=== PATIENT | female | born 1990 | race Caucasian/White ===

== ENCOUNTER 2016-10-03 19:52 | Emergency (ER) | payer BC, OTHER ==
[~2016-10-03] VITALS: Ht 165.1 cm; Wt 113.9 kg
[~2016-10-03 19:52] MED LIST: ADVAIR 250/501 DISK; ADVAIR 250/501 DISK IH; ALPRAZOLAM0.25 M2 PO; AMOXICILLIN250 MG PO; BACTRIM,SEPT1 TABLET PO; CIPRO500 MG PO; CIPROFLOXACIN H10 ML RIGHT EYE; ENDOCET 5-3251 EACH PO; FLEXERIL10 MG PO; IBUPROFEN800 MG PO; LORTAB 5-325 M1 EACH PO; MOTRIN800 MG PO; MUPIROCIN22 GM TP; PERCOCET 5/31 TABLET PO; PRENATAL TABLE1 EAC3 PO; XULANE PATCH1 EACH TD; ZOFRAN ODT4 MG PO
[2016-10-03 21:17] LABS: ADD MIUA? YES; BILIRUBIN NEGATIVE; BLOOD NEGATIVE; COLOR YELLOW ((YELLOW)); GLUCOSE (STRIP) NEGATIVE; KETONES NEGATIVE; LEUKOCYTES NEGATIVE; NITRITE NEGATIVE; PROTEIN (STRIP) NEGATIVE; UROBILINOGEN 0.2 MG/DL (0.2-1.0)
[2016-10-03 21:33] LABS: BACTERIA NONE SEEN /HPF; EPITHELIAL CELLS 2+ /HPF; MUCUS TRACE /LPF; RED BLOOD CELLS 0-5 /HPF (0-5); UCUL ADDED? NO
[2016-10-03] MEDS ORDERED: NAPROSYN500 MG PO (22:02)
[2016-10-03] MEDS ORDERED: MACROBID100 MG PO (22:09)
[2016-10-03 22:19] VITALS: BP 137/77
== END 2016-10-03 22:19 | disposition home or self-care (01) ==
LOC: EME 19:52
PROVIDERS: Physician Assistant Medical
DX: S93.602A Unspecified sprain of left foot, initial encounter (principal); N39.0 Urinary tract infection, site not specified; Z91.81 History of falling; B19.20 Unspecified viral hepatitis C without hepatic coma; M79.7 Fibromyalgia; F17.200 Nicotine dependence, unspecified, uncomplicated
CPT/HCPCS: 73610; 73630; 81003; 93971; 99281; 99284

== ENCOUNTER 2018-02-21 10:14 | Emergency (ER) | payer BC, OTHER ==
[~2018-02-21] VITALS: Ht 165.1 cm; Wt 118.7 kg
[~2018-02-21 10:14] MED LIST changes: +MACROBID100 MG PO; +NAPROSYN500 MG PO
[2018-02-21 11:01] LABS: HEMATOCRIT 42.1 % (36.0-46.0); HEMOGLOBIN 14.9 G/DL (11.9-15.5); MCH 31.9 PG (29.0-34.0); MCHC 35.4 G/DL (30.0-36.0); MCV 90.1 FL (83-99); PLATELET COUNT 258 K/uL (156-360); RBC DIS.WIDTH-CV 11.9 % (11.8-14.6); RBC DIS.WIDTH-SD 39.2 % (39-53); RED BLOOD COUNT 4.67 M/uL (3.80-5.20); WHITE BLOOD COUNT 11.7 K/uL (4.1-10.2)
[2018-02-21 11:47] LABS: CHLORIDE 104 MEQ/L (99-109); CREATININE 0.7 MG/DL (0.6-1.3); GFR ESTIMATE (CALCULATED) > 59 mL/min/; GLUCOSE 125 mg/dL (70-99); POTASSIUM 3.9 MEQ/L (3.7-5.4); SODIUM 141 MEQ/L (136-147); UREA NITROGEN (BUN) 9 mg/dL (9-23)
[2018-02-21] MEDS ORDERED: DUONEB 2.5-0.5 M3 ML AEROSOL (14:15)
[2018-02-21 14:23] VITALS: BP 126/93
[2018-02-22] MEDS ORDERED: PREDNISONE20 MG PO (15:48)
== END 2018-02-21 14:32 | disposition home or self-care (01) ==
LOC: EME 10:14
DX: J45.901 Unspecified asthma with (acute) exacerbation (principal); J06.9 Acute upper respiratory infection, unspecified; R51 Headache; F17.200 Nicotine dependence, unspecified, uncomplicated; Z90.49 Acquired absence of other specified parts of digestive tract; Z87.39 Personal history of other diseases of the musculoskeletal system and connective tissue; Z88.6 Allergy status to analgesic agent; Z88.5 Allergy status to narcotic agent; Z88.2 Allergy status to sulfonamides; Z88.8 Allergy status to other drugs, medicaments and biological substances
CPT/HCPCS: 71046; 80048; 85027; 94640; 94640 76; 99281; 99284

== ENCOUNTER 2018-02-22 12:17 | Emergency (ER) | payer BC, OTHER ==
[~2018-02-22] VITALS: Ht 165.1 cm; Wt 120.0 kg
[~2018-02-22 12:17] MED LIST changes: +DUONEB 2.5-0.5 M3 ML AEROSOL
[2018-02-22] MEDS ORDERED: PREDNISONE20 MG PO (15:48)
[2018-02-22 16:03] VITALS: BP 117/92
[2018-02-23] MEDS ORDERED: PROAIR HFA8.5 GM IH (11:05)
[2018-02-23] MEDS ORDERED: SINGULAIR10 MG PO (11:06)
[2018-02-23] MEDS ORDERED: ATIVAN0.5 MG PO (15:57)
== END 2018-02-22 16:04 | disposition home or self-care (01) ==
LOC: EME 12:17
DX: J45.909 Unspecified asthma, uncomplicated (principal); F41.9 Anxiety disorder, unspecified; F17.200 Nicotine dependence, unspecified, uncomplicated; Z79.3 Long term (current) use of hormonal contraceptives; Z87.09 Personal history of other diseases of the respiratory system; Z98.890 Other specified postprocedural states; Z90.49 Acquired absence of other specified parts of digestive tract; Z88.1 Allergy status to other antibiotic agents; Z88.6 Allergy status to analgesic agent; Z88.5 Allergy status to narcotic agent
CPT/HCPCS: 94640; 99281; 99284; J2930; J7030

== ENCOUNTER 2018-02-23 10:30 | Emergency (ER) | payer BC, OTHER ==
[~2018-02-23] VITALS: Ht 165.1 cm; Wt 120.0 kg
[~2018-02-23 10:30] MED LIST changes: +PREDNISONE20 MG PO
[2018-02-23 10:55] LABS: HEMATOCRIT 41.7 % (36.0-46.0); HEMOGLOBIN 15.3 G/DL (11.9-15.5); MCH 32.2 PG (29.0-34.0); MCHC 36.7 G/DL (30.0-36.0); MCV 87.8 FL (83-99); PLATELET COUNT 294 K/uL (156-360); RBC DIS.WIDTH-CV 11.9 % (11.8-14.6); RBC DIS.WIDTH-SD 38.1 % (39-53); RED BLOOD COUNT 4.75 M/uL (3.80-5.20); WHITE BLOOD COUNT 20.9 K/uL (4.1-10.2)
[2018-02-23 11:05] LABS: CHLORIDE 106 mEq/L (99-109); POTASSIUM 3.5 mEq/L (3.7-5.4); SODIUM 138 mEq/L (136-147)
[2018-02-23] MEDS ORDERED: PROAIR HFA8.5 GM IH (11:05)
[2018-02-23 11:06] LABS: GLUCOSE 108 mg/dL (70-99)
[2018-02-23] MEDS ORDERED: SINGULAIR10 MG PO (11:06)
[2018-02-23 11:10] LABS: CREATININE 0.8 mg/dL (0.6-1.3); GFR ESTIMATE (CALCULATED) > 59 mL/min/
[2018-02-23 11:11] LABS: UREA NITROGEN (BUN) 8 mg/dL (9-23)
[2018-02-23 11:17] LABS: TROP-I INTERPRETATION NEGATIVE; TROPONIN-I 0.02 ng/mL (0.0-0.30)
[2018-02-23 11:21] LABS: QUANTITATIVE HCG < 4.0 MIU/ML
[2018-02-23 11:38] LABS: D-DIMER ELISA < 150.00 ng/mLDDU (<230)
[2018-02-23 14:24] LABS: TROP-I INTERPRETATION NEGATIVE; TROPONIN-I < 0.01 ng/mL (0.0-0.30)
[2018-02-23] MEDS ORDERED: ATIVAN0.5 MG PO (15:57)
[2018-02-23 16:20] VITALS: BP 133/92
== END 2018-02-23 16:31 | disposition home or self-care (01) ==
LOC: EME 10:30
PROVIDERS: Emergency Medicine
DX: R07.9 Chest pain, unspecified (principal); F41.1 Generalized anxiety disorder; F31.9 Bipolar disorder, unspecified; R94.31 Abnormal electrocardiogram [ECG] [EKG]; Z88.6 Allergy status to analgesic agent; Z88.5 Allergy status to narcotic agent; Z88.2 Allergy status to sulfonamides; Z88.8 Allergy status to other drugs, medicaments and biological substances; F17.200 Nicotine dependence, unspecified, uncomplicated
CPT/HCPCS: 71045; 80048; 84484; 84702; 85027; 85379; 90839; 93005; 99281; 99285; J2060